=== PATIENT | male | born 1975 | race Hispanic/Latino ===

== ENCOUNTER 2022-09-13 18:43 | Emergency (ER) | payer OTHER ==
[~2022-09-13] VITALS: Ht 170.2 cm; Wt 95.3 kg
[2022-09-13 20:06] VITALS: BP 121/64
== END 2022-09-13 21:15 | disposition left against medical advice (07) ==
LOC: EDH 18:43
DX: R20.0 Anesthesia of skin (principal); Z53.21 Procedure and treatment not carried out due to patient leaving prior to being seen by health care provider